=== PATIENT | female | born 1960 | race Caucasian/White ===

== ENCOUNTER → 2019-03-23 13:30 | Outpatient (CLI) | payer OTHER, SELFPAY ==
[2019-03-23 13:21] VITALS: BMI 38.0
--- NOTE | 2019-03-23 13:30 | ASPS_PTH ---
PATIENT: KASEY CARR LOC: [facility] U#:[id number] AGE/SX: 64/F ROOM: RE03/23/[address]: Dr. Favian Ramírez MD : 1960 BED: DIS: SPEC #: [id number] RECD: 03/23/19 14:44 STATUS: LAWSON RASHEL #: [id number] AMILCAR: 03/23/19 13:[address]: Favian Ramírez DEPT: CYTOLOGY RECD BY: Chilo Cottrell Tissues: Thyroid gland, NOS Procedures: Special Stain Group II Cytology Other HEADER OPERATION: Ultrasound-guided fine needle aspiration right thyroid nodule PRE-OP DIAGNOSIS: Right uninodular goiter TISSUE SUBMITTED: Fine needle aspiration right thyroid DIAGNOSIS CYTOLOGY Fine needle aspiration, left thyroid nodule (smears): Rare atypical follicular cells are present. AM:chong 03/27/19 COMMENT Specimen is adequate for evaluation. CYTOLOGY STUDY Slides are reviewed. CYTOLOGY GROSS Received are ten smears labeled with the patient's name and designated per the requisition as FNA right thyroid. Submitted for staining. 03/24/19 TC:? CPT: 02331
--- NOTE | 2019-03-23 13:30 | ASPS_PTH ---
PATIENT: KASEY CARR LOC: [facility] U#:[id number] AGE/SX: 64/F ROOM: RE03/23/[address]: Dr. Favian Ramírez MD : 1960 BED: DIS: SPEC #: [id number] RECD: 03/23/19 14:44 STATUS: LAWSON RASHEL #: [id number] AMILCAR: 03/23/19 13:[address]: Favian Ramírez DEPT: CYTOLOGY RECD BY: Chilo Cottrell Tissues: Thyroid gland, NOS Procedures: Special Stain Group II Cytology Other HEADER OPERATION: Ultrasound-guided fine needle aspiration right thyroid nodule PRE-OP DIAGNOSIS: Right uninodular goiter TISSUE SUBMITTED: Fine needle aspiration right thyroid DIAGNOSIS CYTOLOGY Fine needle aspiration, right thyroid nodule (smears): Rare atypical follicular cells are present. AM:chong 03/27/19 AM:chong 04/06/19 COMMENT Specimen is adequate for evaluation. CYTOLOGY STUDY Slides are reviewed. CYTOLOGY GROSS Received are ten smears labeled with the patient's name and designated per the requisition as FNA right thyroid. Submitted for staining. 03/24/19 TC:? CPT: 12860
== END ==
PROVIDERS: Referring Provider Surgery; Visit Provider Surgery
DX: E04.1 Nontoxic single thyroid nodule (principal)
CPT/HCPCS: 88161; 88313

== ENCOUNTER 2019-04-25 10:40 | Day surgery (SDC) | payer OTHER, SELFPAY ==
--- NOTE | 2019-04-05 02:44 | HP_ITS ---
Intake Vital Signs 04/05/19 Height 5 ft 7 in 04/05/19 Weight: 243 lb 04/05/19 Body Mass Index (BMI) 38.0 04/05/19 Respiratory Rate 18 04/05/19 Body Mass Index (BMI) 38.0 Intake Visit Reasons: 1WK F/U 03/23 FNA R THYROID Chief Complaint: right thyroid FNA Commercial Agent Required: No Is patient in pain?: No Allergies No Known Allergies Allergy (Verified 04/05/19 14:22) Medications cetirizine 10 mg tablet 10 mg PO DAILY 03/21/19 [History Confirmed 04/05/19] fluticasone propionate 50 mcg/actuation nasal spray,suspension 2 spray INTRANASAL DAILY 03/21/19 [History Confirmed 04/05/19] hydrochlorothiazide 25 mg tablet 25 mg PO DAILY 03/21/19 [History Confirmed 04/05/19] levothyroxine 100 mcg tablet 100 mcg PO DAILY 03/21/19 [History Confirmed 04/05/19] multivitamin tablet 1 tab PO DAILY 03/21/19 [History Confirmed 04/05/19] [facility] Medical History Melanoma (Acute) Thyroid disease (Acute) Hypertension (Chronic) Arthritis (Acute) Surgical History Hx of melanoma excision (Acute) Status post biopsy of thyroid gland (Acute ~03/2019) Family History Mother Diabetes Arthritis Father Parkinson disease Social History (Updated 04/05/19 @ 14:45 by Favian Ramírez MD) Smoking Status: Never smoker second hand exposure: No alcohol intake: never substance use type: does not use caffeine: Yes what type of physical activity do you participate in: none frequency: does not exercise HPI HPI HPI: KASEY CARR, is a 58 F who presents to the office today for HPI HPI Surgical H&P: Yes HPI: KASEY CARR, is a 58 F who presents to the office today for Follow-up from an ultrasound-guided fine-needle aspiration of a dominant right thyroid nodule which was completed in my office on 03/23/2019. . [facility] This showed a right-sided nodule with the size of 3.5 cm in greatest diameter. No other nodules were identified. She was noted to have some microcalcifications present in the left lobe of her thyroid gland. The fine-needle aspiration revealed a rare atypical follicular cells present in the aspirate. She is now here to discuss surgical options for this. ROS General General: No weight change, appetite, fatigue, colon cancer, breast cancer or weakness HEENT HEENT: Yes swollen glands; no difficulty swallowing, eye injury, eye surgery or hoarseness Endo Endocrine: Yes thyroid disease; no diabetes mellitus, thyroid cancer, Hair loss, heat intolerance or cold intolerance Skin Skin: Yes changing moles; no rash Musc Musculoskeletal: Yes arthritis; no back problems, rheumatoid arthritis, gout or joint pain Cardio Cardiovascular: Yes high blood pressure; no murmur, pacemaker, heart disease, atrial fibrillation, heart attack, heart stent, palpitations, shortness of breat with exertion or chest pain Psych Psychiatric: No depression, anxiety or hearing voices Resp Respiratory: No shortness of breath, No sleep apnea, No cough, No COPD, No asthma, No emphysema, No wheezing Gastro Gastrointestinal: No abdominal pain, No nausea or vomiting, No diarrhea, No constipation, No blood in stool, No acid reflux, No hemorrhoids, No ulcers, No gallbladder problem, No black,tarry stools Jean-Pierre Hematologic: No blood thinners, No blood disorders, No bleeding, No anemia, No blood clots Neuro Neurologic: No weakness Exam Const General: no acute distress, well developed, well hydrated Orientation: oriented to person, oriented to place, oriented to time [facility] Head: normocephalic, atraumatic Ears: external ears normal Mouth: moist mucous membranes Other: Thyroid Exam: No hard nodules are palpated.There is no lymphadenopathy palpated. Eyes Sclera: sclerae normal Pupils: normal by confrontation Neck Neck: no lymphadenopathy noted Neck mass: No Thyroid: thyroid normal, symmetrical Chest Chest palpation & inspection: normal inspection of the chest Resp Effort & Inspection: normal respiratory effort Auscultation: clear to auscultation bilaterally Percussion: percussion normal Cardio Rate: regular rate Rhythm: regular rhythm Heart Sounds: no murmurs GI Palpation: soft, no hepatosplenomegaly, no masses, nontender Rectal Exam: other Other: Rectal exam deferred. Extrem General: normal to inspection, no clubbing, cyanosis or edema Assessment & Plan Problems 1. Uninodular goiter E04.1 Plan My plan is to perform a right-sided thyroid lobectomy and isthmusectomy. Risk benefits have been reviewed with the patient to include possible bleeding infection possible injury to the parathyroid glands and recurrent laryngeal nerves.We discussed the risks and benefits of the planned procedure. I have informed the patient that complications can occur including failure to complete the procedure. The patient had the opportunity to ask questions concerning the planned procedure. My staff has also explained the procedure to the patient in understandable terms and has given the patient printed material concerning the procedure. The patient freely consents to the procedure. Coding Level of Care Code Off vis,est,level 2 Diagnoses Uninodular goiter E04.1 04/05/19 9634 <Electronically signed by Favian corral MD> Date _ Favian Ramírez MD I have re-examined the patient. There are no clinical changes since date of exam.
[2019-04-05 14:22] VITALS: BMI 38.0
--- NOTE | 2019-04-21 16:00 | EKG12_ITS ---
Test Reason : PRE OP Blood Pressure : / mmHG Vent. Rate : 063 BPM Atrial Rate : 063 BPM P-R Int : 152 ms QRS Dur : 102 ms QT Int : 404 ms P-R-T Axes : 064 018 041 degrees QTc Int : 413 ms Normal sinus rhythm Normal ECG Confirmed by MACIEJ FONTANA ([id number]), graphic editor KAILA KITCHEN ([id number]) on 05/01/2019 2:29:31 PM Referred By: Maciej Ramírez Confirmed By:MACIEJ FONTANA
[2019-04-21 17:32] LABS: Hematocrit 40.8 % (37-47); Hemoglobin 13.3 g/dL (12.0-15.0); Mean Corp Hgb Conc 32.6 g/dL (32-36); Mean Corpuscular Hgb 27.3 pg (27.0-32.0); Mean Corpuscular Volume 83.6 fL (81-99); Mean Platelet Vol. 9.6 fl (6.2-12.0); Platelet Count 257 K/mm3 (150-450); RBC Distribution Width CV 13.4 % (11.6-14.6); Red Blood Count 4.88 M/mm3 (4.2-5.4); White Blood Count 8.4 K/mm3 (4.4-11.0)
[2019-04-21 17:35] LABS: BUN 13 mg/dL (7-18); Glucose 100 mg/dL (74-106)
[2019-04-21 17:36] LABS: Anion Gap 7 (5-15); BUN/Creat Ratio 16.4 RATIO (10-20); Chloride 104 mmol/L (98-107); EST Glomerular Filtration Rate 79 mL/min (>60); Est Glom Filt Rate - Afr Amer 96 mL/min (>60); Potassium 3.1 mmol/L (3.5-5.1); Sodium Level 142 mmol/L (136-145); Thyroid Stim Hormone (TSH) 1.24 uIU/mL (0.358-3.74)
[2019-04-25] VITALS (9 sets, daily range): BP systolic 149–183; BP diastolic 68–85; PULSE 65–92; RESP 16–18; TEMP 36.1–36.9; O2SAT 94–100; BMI 37.8
--- NOTE | 2019-04-25 | THYROID_PTH ---
PATIENT: KASEY CARR LOC: [facility] [place] U#:[id number] AGE/SX: 58/F ROOM: RE04/25/[address]: Dr. Favian Ramírez MD : 1960 BED: DIS: 04/26/2019 SPEC #: [id number] RECD: 04/25/19 13:51 STATUS: LAWSON REKyalh #: [id number] AMILCAR: 04/25/19 00:[address]: Favian Ramírez DEPT: SURGICAL PATHOLOGY RECD BY: Maria Esther Zamorano ENTERED: 04/25/19 14:09 SP TYPE: THYROID OTHR DR: Karina Moreno, NURSING SECRETARY-C Tissues: A - Thyroid gland, NOS B - Lymph node, NOS Procedures: Frozen Section (charge) Surgery Specimen Level IV Surgery Specimen Level V HEADER OPERATION: Thyroid lobectomy PRE-OP DIAGNOSIS: Uninodular goiter TISSUE SUBMITTED: A - Right thyroid lobectomy, frozen section, B - Central compartment lymph node FROZEN SECTION DIAGNOSIS A. Right thyroid lobe, lobectomy: Chronic lymphocytic thyroiditis. Focal H?rthle cell change. AM:chong 04/25/19 Case has been reviewed in consultation with Dr. Melchor who concurs with the above diagnosis. IDC:CODY MICROSCOPIC DIAGNOSIS A. Right lobe of thyroid, lobectomy: Chronic lymphocytic thyroiditis with focal H?rthle cell change. Microscopic hyalinized and calcified nodules. Four out of four lymph nodes with no pathologic change. Parathyroid tissue (5.5 mm in greatest dimension). B. Central compartment lymph node, biopsy: Two out of two benign lymph nodes. AM:chong 04/27/19 COMMENT Case has been reviewed in consultation with Dr. Melchor who concurs with the above diagnosis. IDC:CODY MICROSCOPIC DESCRIPTION Slides are reviewed. GROSS DESCRIPTION A - Received fresh for frozen section diagnosis labeled with the patient's name is a specimen designated right thyroid lobectomy. The specimen consists of a thyroid lobectomy specimen weighing 21.6 gm and measuring 6.5 x 4.5 x 2 cm. No external parathyroid tissue is identified. The specimen is inked as follows: anterior - black, posterior - blue, isthmus margin - yellow. Serial sections reveal trivedi cut surfaces with ill-defined multinodular cut surfaces. The largest nodule measures 3.5 x 2.5 x 1.5 cm. No capsule is noted around this nodule. A section of this nodule is submitted for frozen section diagnosis. The entire specimen is submitted in 13 cassettes as follows: 1 - frozen section, 2-13 - rest of the specimen (2 containing most superior portion and 13 containing most inferior portion. / CODY:chong 04/25/19 B - Received in fixative is one container labeled with the patient's name and designated central compartment lymph node. The specimen consists of a piece of yellow adipose tissue measuring 1.5 x 1 x 0.3 cm. Two possible nodules consistent with lymph nodes are noted. The entire specimen is submitted in one cassette. / CODY:chong 04/26/19 TC:3 CPT: 56768, 58737
[2019-04-25] MEDS: Lactated Ringers 1,000 ML 75 ML IV ×2 (12:00→13:55)
[2019-04-25 12:25] LABS: Anion Gap 5 (5-15); BUN 11 mg/dL (7-18); BUN/Creat Ratio 12.9 RATIO (10-20); Calcium,Total 8.9 mg/dL (8.5-10.1); Chloride 108 mmol/L (98-107); Creatinine, Serum 0.85 mg/dL (0.55-1.02); EST Glomerular Filtration Rate 73 mL/min (>60); Est Glom Filt Rate - Afr Amer 88 mL/min (>60); Estimated Creatinine Clearance 71.01 ml/min; Glucose 98 mg/dL (74-106); Potassium 4.3 mmol/L (3.5-5.1); Sodium Level 141 mmol/L (136-145)
[2019-04-25] MEDS: Cefazolin 2 GM in 0.9% Normal Saline 100 ML IV (12:51)
--- NOTE | 2019-04-25 12:53 | OP.PCM_ITS ---
Problem List (1) Nontoxic single thyroid nodule Status: Acute Report of Operation Date of Procedure: 04/25/19 Pre-Operative Diagnosis: Uninodular right thyroid nodule Post-Operative Diagnosis: Same Surgery/Procedure Performed:: Right sided thyroid lobectomy Type of Anesthesia:: General Anesthesiologist: Rubin Eller Specimen's removed: Right thyroid and isthmus Estimated Blood Loss (mL): < 25 cc Description of Procedure: Patient was brought to the operating room. Placed in the supine position. Under excellent general trach intubation towel was placed underneath the shoulder blades and neck was extended sterilely prepped and draped in usual fashion. The head was on a pillow so that it was not dangling. Local was injected cervical incision was made subplatysmal flaps were created with use of electrocautery. Radha retractor was placed inside the wound midline strap muscles were opened. The gland was very firm and I was able to take it off of the strap muscles I went inferiorly and took the inferior thyroid vessels down first once this was completed I then went superiorly this took quite a bit more dissecting to get the superior thyroid vessels taken down with harmonic dissector I was able to rotate the gland from lateral to medial standpoint and I was delicately able to remove both the superior and inferior parathyroid glands from the thyroid gland itself. I rotated the gland from lateral medial standpoint I took the gland off of Raphael's ligament with a harmonic dissector and then off the trachea and then transected on the left side of the thyroid gland. I inspected it I saw no parathyroid tissue it felt firm I sent to pathology for frozen section. Frozen section came back as multinodular goiter. I irrigated out the wound I placed FloSeal and some Surgicel into the wound midline strap muscles were brought together with 2-0 Vicryl. Stigler was br ought together with 3-0 Vicryl deep dermal stitches of 3-0 Vicryl and running 4- 0 Monocryl. Dermabond was applied sterile dressings were applied and the patient tolerated the procedure well. - Admit VTE Documentation VTE Present on Admission: No VTE Mechan Device Prophylaxis: SCD's VTE Pharm Prophylaxis ordered?: No Reason prophylaxis not ordered:: Treatment Not Indicated
[2019-04-25] MEDS: BUPIVACAINE LIPOSOME/PF 20 ML VIAL OPERA.SITE (13:45)
[2019-04-25] MEDS: Lactated Ringers 1,000 ML 65 ML IV (15:57)
[2019-04-25] MEDS: HYDROmorphone 0.5 MG/0.5 ML SYRINGE IV (16:23)
[2019-04-25] MEDS: 0.9% NaCl Peripheral Flush Adult/Peds IV (16:24)
[2019-04-25] MEDS: Ibuprofen 400 MG Tablet 800 MG PO (21:45)
[2019-04-26 02:25] VITALS: BP 139/64; PULSE 53; RESP 16; TEMP 36.5; O2SAT 98
[2019-04-26] MEDS: Ibuprofen 400 MG Tablet 800 MG PO (05:47)
[2019-04-26] MEDS: Levothyroxine 100 MCG Tablet PO (05:47)
[2019-04-26 08:15] VITALS: BP 152/69; PULSE 60; RESP 18; TEMP 37.1; O2SAT 98
[2019-04-26] MEDS: Loratadine 10 MG Tablet PO (08:17)
[2019-04-26] MEDS: hydroCHLOROthiazide 25 MG Tablet PO (08:17)
--- NOTE | 2019-04-26 08:32 | PCM.PN.SRG ---
Patient Problems: Active and Suspected Problems (Last Reviewed 04/05/19 @ 14:32 by Favian Ramírez MD) Nontoxic single thyroid nodule (Acute) Subjective: Patient evaluated resting comfortably in bed. Patient notes minimal sore throat and hoarseness. She denies incisional discomfort. She denies nausea, vomiting. - Physical Exam General: Alert, Oriented x3, Cooperative Neck: - - Anterior cervical incision- c/d/i. Slight amount of ecchymosis. Very minimal amount of swelling noted. Vital Signs Temp Pulse Resp BP Pulse Ox 98.8 F 60 18 152/69 H 98 04/26/19 08:15 04/26/19 08:15 04/26/19 08:15 04/26/19 08:15 04/26/19 08:15 Oxygen Delivery Method Room Air Weight: 245 lb 5.992 oz Body Mass Index (BMI) 37.8 Intake and Output for Last 24 Hours 04/24/19 04/25/19 04/26/19 23:59 23:59 23:59 Intake Total 3107.67 / 3857.67 1550 / 1550 Output Total 600 / 2300 2500 / 2500 Balance 2507.67 / 1557.67 -950 / -950 Laboratory Tests Past 24 Hrs 04/25/19 11:55 Sodium 141 Potassium 4.3 Chloride 108 H Carbon Dioxide 28.0 Anion Gap 5 BUN 11 Creatinine 0.85 Estim Creat Clear Calc 71.01 Est GFR (MDRD) Af Amer 88 Est GFR (MDRD) Non-Af 73 BUN/Creatinine Ratio 12.9 Glucose 98 Calcium 8.9 Medical Necessity - Tobacco Use Smoking Status: Never smoker Tobacco Use: Non-smoker Assessment/Plan All Active Problems (Last Reviewed 04/05/19 @ 14:32 by Favian Ramírez MD) Nontoxic single thyroid nodule (Acute) Hx of melanoma excision (Acute) Melanoma (Acute) Thyroid disease (Acute) Arthritis (Acute) I am following this patient in conjunction with Dr. Ramírez S/p right thyroid lobectomy Ready for discharge Code Visit Inpatient E&M: 59145 Subs Hosp L1 - No charge
--- NOTE | 2019-04-26 09:19 | PCM.DC.GS ---
Discharge Diet: Light diet - advance as tolerated Discharge Activity: May Not Drive - For 5 days May shower in (days): 1 Lifting Restrictions: 10 pounds Call your doctor if your incision/area has: Continuous Slow Oozing, Sudden Increased Bleeding, Increased Pain/ Swelling, Increased Redness, Foul Smelling Discharge, Swelling at the incision site Call your doctor if you observe: Fever of 101 or Higher Suture Line Care: Avoid Pulling/Pushing, Avoid Pinching/Bending Cleanse incision/area with: Soap & Water Additional Instructions: May take Advil for pain relief as needed. I would recommend either 3-4 tablets every 6 hours as needed. You may stop the Advil at any time once you see your symptoms resolving. Allergies/Adverse Reactions: Allergies lisinopril Adverse Reaction (Verified 04/25/19 16:06) cough,flushing Medications to take at Discharge cetirizine 10 mg tablet 10 mg PO DAILY 03/21/19 fluticasone propionate 50 mcg/actuation nasal spray,suspension 2 spray INTRANASAL DAILY 03/21/19 hydrochlorothiazide 25 mg tablet 25 mg PO DAILY 03/21/19 levothyroxine 100 mcg tablet 100 mcg PO DAILY 03/21/19 multivitamin tablet 1 tab PO DAILY 03/21/19 Fish Oil/Dha/Epa [Fish Oil 1,200 mg Fish Oil] 1 ea PO DAILY 04/19/19 potassium chloride ER 20 mEq tablet,extended release(part/cryst) 20 meq PO BID #6 tab 04/24/19 Orders to be completed after discharge: 12 Lead EKG [CVS] Time Frame: 04/19/19, Facility: [facility], Location: Cardiovascular Services Basic Metabolic Profile (BMP) Time Frame: 04/19/19, Facility: [facility], Location: Laboratory CBC-Complete Blood Cnt No Diff Time Frame: 04/19/19, Facility: [facility], Location: Laboratory Thyroid Stim Hormone (TSH) Time Frame: 04/19/19, Facility: [facility], Location: Laboratory Primary Care Physician: Karina Moreno NP-C [Primary Care Provider] - Test Results: Test results from this visit will be discussed in further detail at your follow-up appointment, if applicable. Please Follow Up With: Shabana Thornton PA-C - [phone] When: 10 days
[2019-04-26 10:00] VITALS: BP 161/64; PULSE 59; RESP 18; TEMP 37.2; O2SAT 100
[2019-04-26 11:56] VITALS: BP 155/69; PULSE 63; RESP 16; TEMP 36.9; O2SAT 100
== END 2019-04-26 12:20 | disposition home or self-care (01) ==
LOC: SDC 10:40 → AC 10:41 → MS3 13:00
PROVIDERS: Anesthesiology; Family Provider Nurse Practitioner Primary Care; PCP Nurse Practitioner Primary Care; Referring Provider Surgery; Visit Provider Surgery
PROC: (CPT 60220; principal; 2019-04-25 12:45)
DX: E06.3 Autoimmune thyroiditis (principal); E04.2 Nontoxic multinodular goiter; M19.90 Unspecified osteoarthritis, unspecified site; Z85.820 Personal history of malignant melanoma of skin; I10 Essential (primary) hypertension
CPT/HCPCS: 60220; 36415; 80048; 84443; 85027; 88305; 88307; 88331; 93005; J7040; J7120; A4216; J2405

== ENCOUNTER → 2020-06-07 14:53 | Outpatient (CLI) ==
--- NOTE | 2020-06-07 14:55 | US_ITS ---
HISTORY: NODULE PARTIAL THYROIDECTOMY PT ON SYNTHROID COMPARISON: None TECHNIQUE: Grayscale and color Doppler sonography of the thyroid gland. FINDINGS: RIGHT LOBE: Surgically absent. LEFT LOBE: 5.5 x 1.5 x 1.8 cm. The left lobe is diffusely heterogeneous. Nodule measuring 1.1 x 0.9 x 1.3 cm is isoechoic to thyroid and located along the margin of the thyroid gland, unclear whether this represents lobulation of thyroid parenchyma, thyroid nodule or perhaps enlarged parathyroid. Ill-defined, very hypoechoic hypoechoic area with shadowing is also noted along the deep margin of the gland measuring 0.9 x 0.6 x 0.4 cm. There appears to be some shadowing deep to this which could be related to calcification. It appears to be wider than tall, although margins are poorly assessed. US/Thyroid IMPRESSION: Diffusely heterogeneous left thyroid lobe with ill-defined very hypoechoic area. If this truly represents a nodule, it is highly suspicious. Additional area of lobulation along the posterior margin of the thyroid, as above. Real-time scanning in the presence of a physician may clarify. at 0816 Reported and signed by: Darlene Mcclure MD Electronically Signed: Darlene Mcclure MD at 8:16 EDT Tel , Service support ,
== END ==
PROVIDERS: PCP Nurse Practitioner Primary Care; Referring Provider Internal Medicine Endocrinology, Diabetes & Metabolism; Visit Provider Internal Medicine Endocrinology, Diabetes & Metabolism
DX: E04.1 Nontoxic single thyroid nodule (principal)
CPT/HCPCS: 76536

== ENCOUNTER → 2020-06-24 14:19 | Outpatient (CLI) | payer OTHER, SELFPAY ==
[2020-06-20 15:01] VITALS: BMI 35.0
--- NOTE | 2020-06-24 14:21 | US_ITS ---
PROCEDURE: ULTRASOUND GUIDED LEFT THYROID FNA/BIOPSY. DATE: 06/24/2020. INDICATION: Female, 59 years old. Left thyroid nodule. PHYSICIAN: Rios Warren M.D. MEDICATIONS: 2% lidocaine administered subcutaneously for local anesthesia. ACCESS SITE: Left - anterior approach. NEEDLE: 25-gauge FNA needle. SPECIMEN: Multiple FNA specimen collected and given to pathology. EBL: None. COMPLICATIONS: None immediate. PROCEDURE: Under direct sonographic guidance, the surgeon performed 3 biopsies of the nodule in the inferior aspect of the left lobe of the thyroid. US/FNA 1st Biopsy w/ US IMPRESSION: Successful ultrasound-guided left thyroid nodule FNA/biopsy, as described above. Electronically Signed: Rios Warren, at 16:00 EST , Service support ,
--- NOTE | 2020-06-24 15:30 | ASPIG_PTH ---
PATIENT: KASEY CARR LOC: [facility]#:[id number] AGE/SX: 64/F ROOM: RE06/24/[address]: Dr. Favian Ramírez MD : 1960 BED: DIS: SPEC #: [id number] RECD: 06/24/20 15:37 STATUS: LAWSON RASHEL #: [id number] AMILCAR: 06/24/20 15:[address]: Favian Ramírez DEPT: CYTOLOGY RECD BY: Fatmata Gay ENTERED: 06/24/20 15:38 SP TYPE: ASP OUT OTHR DR: Karina Moreno, INSURANCE LOSS ADJUSTER-C Tissues: Thyroid gland, NOS Procedures: FNA Specimen Adequacy Special Stain Group II Surgery Specimen Level IV Cytology Other HEADER OPERATION: Left thyroid nodule FNA, ultrasound-guided PRE-OP DIAGNOSIS: Left thyroid nodule TISSUE SUBMITTED: Left thyroid nodule DIAGNOSIS CYTOLOGY Left thyroid nodule, ultrasound-guided FNA (smears and cell block): Consistent with chronic lymphocytic thyroiditis. Adequate for evaluation. See comment. CDOY:chong 06/25/20 COMMENT The specimen is evaluated at the time of FNA by Dr. Melchor. Immediate Evaluation = Adequate for evaluation. Follicular cells and lymphocytes are noted. Correlation with clinical, radiologic findings and appropriate follow up are necessary. Please make reference to previous specimen ([id number]) right lobe of thyroid, lobectomy with diagnosis of chronic lymphocytic thyroiditis with focal Hurthle cell change and microscopic hyalinized and calcified nodule. CYTOLOGY STUDY Slides are reviewed. CYTOLOGY GROSS Received in three passes is 0.2 ml of bloody fluid labeled with the patient's name, and designated left thyroid nodule. Five imprints and four paps are made from the submitted fluid and the rest is added to CytoLyt for cell block preparation. Submitted for cytology study. / CODY:chong 06/24/20 TC:5 CPT: 56779, 62503, 35574
--- NOTE | 2020-06-24 15:41 | NURSING ---
post biopsy, op site dressing applied after wiping excess drainage with sterile 4x4's, reviewed home care and ice pack given for comport, stayed for 15 minutes before leaving to get settled after the biopsy, ambulated, steady denied need for further time and or wheel chair
--- NOTE | 2020-06-24 16:36 | OP.PCM_ITS ---
Problem List (1) Multinodular goiter Status: Acute Report of Operation Date of Procedure: 06/24/20 Pre-Operative Diagnosis: Multinodular goiter Post-Operative Diagnosis: Same Surgery/Procedure Performed:: Ultrasound-guided fine-needle aspiration of dominant left thyroid nodule Type of Anesthesia:: Local Description of Procedure: Patient was brought in the ultrasound unit placed in the supine position. Ultrasound of the left thyroid gland revealed the nodule in question. I prepped the skin with Betadine. I injected 1% lidocaine plain. Under ultrasound ezra mlcaughlin I took 3 passes with a 22-gauge needle. I gave this to the pathologist who plated these and looked at it immediately and said that it look like chronic lymphocytic thyroiditis. Sterile dressings were applied and the patient tolerated the procedure well. The specimen was adequate for evaluation - Admit VTE Documentation VTE Present on Admission: No VTE Mechan Device Prophylaxis: None VTE Pharm Prophylaxis ordered?: No Reason prophylaxis not ordered:: Treatment Not Indicated 10xxx: 30991 Fna bx w/us gdn 1st les
== END ==
PROVIDERS: PCP Nurse Practitioner Primary Care; Referring Provider Surgery; Visit Provider Surgery
DX: E04.1 Nontoxic single thyroid nodule (principal)
CPT/HCPCS: 10005; 88161; 88172; 88305; 88313

== ENCOUNTER → 2021-06-09 15:14 | Outpatient (CLI) | payer OTHER, SELFPAY ==
[2021-06-09 18:13] LABS: T4 Free Direct 1.37 ng/dL (0.76-1.46); Thyroid Stim Hormone (TSH) 0.19 uIU/mL (0.358-3.74)
== END ==
PROVIDERS: PCP Nurse Practitioner Primary Care; Visit Provider Internal Medicine Endocrinology, Diabetes & Metabolism
DX: E04.2 Nontoxic multinodular goiter (principal); E89.0 Postprocedural hypothyroidism
CPT/HCPCS: 36415; 84439; 84443

== ENCOUNTER → 2021-06-11 14:24 | Outpatient (CLI) | payer OTHER, SELFPAY ==
--- NOTE | 2021-06-11 14:31 | US_ITS ---
STUDY: THYROID ULTRASOUND REASON FOR EXAM: Female, 60 years old. Multinodular goiter TECHNIQUE: Ultrasound evaluation of the thyroid was performed with real-time and static swift-scale imaging. COMPARISON: Comparison is made with prior examination dated 06/07/2020. FINDINGS: RIGHT LOBE: The patient is status post resection of the right lobe of the thyroid. LEFT LOBE: The left lobe of the thyroid gland is mildly enlarged and measures 5.1 cm x 1.6 cm x 2.1 cm. There is a heterogeneous echotexture. There is a 1 cm x 0.6 x 1.4 cm solid heterogeneous nodule in the midpole. This is unchanged. This nodule was biopsied on prior examination. ISTHMUS: The isthmus measures 9 mm. The regional lymph nodes are normal. US/Thyroid IMPRESSION: Stable examination. Electronically Signed: Rios Warren MD at 12:21 EDT , Service support ,
== END ==
PROVIDERS: PCP Nurse Practitioner Primary Care; Referring Provider Internal Medicine Endocrinology, Diabetes & Metabolism; Visit Provider Internal Medicine Endocrinology, Diabetes & Metabolism
DX: E04.2 Nontoxic multinodular goiter (principal); E89.0 Postprocedural hypothyroidism
CPT/HCPCS: 76536